=== PATIENT | female | born 1965 | race African-American/Black ===

== ENCOUNTER 2016-11-09 11:24 | Inpatient (IN) ==
[2016-11-09 12:34] LABS: Apearance,Urine CLEAR (Clear); Bacteria,Urine Occasional /HPF (Few); Bilirubin,Urine Negative (Negative); Blood, Urine Small mg/dL (Negative); Glucose,Urine (UA) >=500 mg/dL (Negative); Ketones,Urine 5 mg/dL (Negative); Mucus,Urine Occasional /LPF (Occasional); Nitrite,Urine Negative (Negative); Protein,Urine 100 MG/DL; RBC,Urine <1 /HPF (0-4); Squamous Epithelial Cell,Urine Occasional /HPF (0-10); Urine Color Straw (Yellow); Urine Specific Gravity 1.013 (1.001-1.035); Urine Urobilinogen < 2.0 EU/DL (0.2-1.0); WBC,Urine 1 /HPF (0-6)
[2016-11-09] MEDS ORDERED: PANTOPRAZOLE 40 MG VIAL IV STA (13:06)
[2016-11-09] MEDS ORDERED: PANTOPRAZOLE 40 MG VIAL IV ONE (13:08)
[2016-11-09] MEDS ORDERED: MORPHINE 2 MG/1 ML SYRINGE IM STA (13:56)
[2016-11-09] MEDS ORDERED: ONDANSETRON 4 MG/2 ML VIAL IM STA (13:56)
[2016-11-09] MEDS ORDERED: MORPHINE 2 MG/1 ML SYRINGE ONE ×2 (13:58→16:13)
[2016-11-09] MEDS ORDERED: ONDANSETRON 4 MG/2 ML VIAL ONE (13:58)
--- NOTE | 2016-11-09 14:28 | Post Interventional Procedure ---
Pre-op diagnosis: Abd pain, no PIV access Post-op diagnosis: same Procedure: LUE PICC Flouroscopy: 0.1 min Radiologist: Scar Soni Anesthesia: local Specimens: none sent Estimated blood loss: none Complications: none Condition: stable Assessment and Plan - Time spent with patient Time spent with patient: Less than 30 minutes
[2016-11-09 14:51] LABS: Basophils % 0.3 % (0.0-0.8); Eosinophils # 0.1 10*3/uL (0.0-0.87); Eosinophils % 1.1 % (0.00-10.9); Hematocrit 39.5 VOL% (35.7-47.0); Hemoglobin 12.3 GM/DL (12.0-16.0); Immature Granulocytes % 0.3 %; Immature Granulocytes Absolute 0.02 #; Lymphocytes # 1.2 10*3/uL (1.4-4.0); Lymphocytes % 16.1 % (21.3-54.2); Mean Corpuscular HGB Conc 31.1 GM/DL (32-36); Mean Corpuscular Hemoglobin 24 PG (27-34); Mean Corpuscular Volume 76.3 FL (87-102); Mean Platelet Volume 10.6 FL (9.6-12.0); Monocytes # 0.5 10*3/uL (0.11-0.8); Monocytes % 6.4 % (1.7-12.7); Neutrophils # 5.5 10*3/uL (1.4-7.4); Neutrophils % 75.8 % (38.7-73.9); Platelet Count 257 T/CUMM (130-400); Red Blood Count 5.18 MC/CUMM (3.8-5.5); Red Cell Distribution Width 15.3 % (9.3-17.3); White Blood Count 7.2 T/CUMM (4-12)
--- NOTE | 2016-11-09 14:58 | Emergency Department Note ---
Arrival - Arrival Chief Complaint: Abdominal / Flank Pain Stated Complaint: abd pain ED Nursing Triage Note: upper abd pain for several days. was told that she had reflux and given pain meds but reports has not helped. Mode of Arrival: Ambulatory Source: Patient Time Seen by Provider: 11/09/16 12:13 - History of Present Illness HPI Narrative: 51 y/o black female presents to the ER complaining of upper abdominal pain, nausea, and vomiting. Describes pain as a burning pain. Pain is worse after eating. Symptoms started 3-4 days ago but continues to worsen. Patient was seen in the ER on 11/07/16 for the same complaint and discharged home with the diagnosis of GERD. On 11/07/16 CT Abd/Pelvis and lab work were all normal. Past medical history significant for GERD, IDDM, sarcoidosis, hyst, and Cholecystectomy. Severity: mild Quality: burning Date of Last Menstrual Period: hyst Allergies/Adverse Reactions: Allergies Allergy/AdvReac Type Severity Reaction Status Date / Time Penicillins AdvReac Nausea Verified 11/07/16 08:54 Home Medications: Home Medications Medication Instructions Recorded Confirmed Type Acetaminophen Tab [Tylenol Tab] 500 mg PO QOTHER DAY PRN 11/07/16 11/09/16 History Albuterol Sulfate [Ventolin HFA] 2 puff INH Q4H PRN 11/07/16 11/09/16 History Insulin NPH Human Isophane 25 unit SUBCUT QAM 11/07/16 11/09/16 History [NovoLIN N] Insulin NPH Human Isophane 35 unit SUBCUT BEDTIME 11/07/16 11/09/16 History [NovoLIN N] Insulin Regular, Human [NovoLIN R] 10 unit SUBCUT BID 11/07/16 11/09/16 History Pantoprazole Tab [Protonix Tab] 40 mg PO BID #60 tablet 11/07/16 11/09/16 Rx Review of System - Review of System 12 point system: reviewed and no additional remarkable complaints except as stated - Review of System Gastrointestinal: Present: abdominal pain (epigastric ), nausea Medical,Surgical,& Family Hx - Medical History Endocrine: History of: Diabetes Mellitus (IDDM) Respiratory: History of: Respiratory Problems (Sarcodosis) Gastrointestinal: History of: GERD - Social History Smoking Status: Never smoker Exam Vital Signs: Vital Signs Temperature 97.9 F 11/09/16 11:39 Pulse Rate 82 11/09/16 15:20 Respiratory Rate 20 11/09/16 15:20 Blood Pressure 189/109 11/09/16 15:20 O2 Sat by Pulse Oximetry 100 11/09/16 15:20 - General General appearance: alert, in no apparent distress - ENT ENT exam: Present: normal exam, normal oropharynx, mucous membranes moist - Chest Chest inspection: Present: normal inspection - Respiratory Respiratory exam: Present: normal lung sounds bilaterally - Cardiovascular Cardiovascular exam: Present: regular rate, normal rhythm, normal heart sounds - Abdominal Exam Abdominal exam: Present: soft, tenderness (epigastric ), normal bowel sounds - Extremities Exam Extremities exam: Present: normal inspection, full ROM - Back Exam Back exam: Absent: CVA tenderness (R), CVA tenderness (L) - Neurological Exam Neurological exam: Present: alert, oriented X3 - Psychiatric Psychiatric exam: Present: normal affect, normal mood - Skin Skin exam: Present: warm, dry Course - Consultations Consultation #1: Hospitalist Time: 15:00 (Will admit patient to Hospitalist ) Results - Labs CBC & BMP: 11/09/16 12:14 11/09/16 12:14 Lab Results: I have reviewed the patients labs Disposition Clinical Impression: Epigastric pain, Nausea & vomiting Case discussed with: patient Disposition: Still a Patient Condition: Stable
[2016-11-09 15:08] LABS: Alanine Aminotransferase 22 U/L (13-56); Albumin 3.5 G/DL (3.4-5.0); Alkaline Phosphatase 138 U/L (45-117); Aspartate Amino Transferase 14 U/L (0-37); Bilirubin,Total < 0.39 MG/DL (0.2-1.0); Blood Urea Nitrogen 9 MG/DL (7-18); Calcium 9.2 MG/DL (8.5-10.1); Glucose 277 MG/DL (74-106); Osmolality,Calculated 283.7 MOS/KG (273-304); Potassium 3.4 MMOL/L (3.5-5.1); Sodium 138 MMOL/L (136-145); Total Protein 7.7 G/DL (6.4-8.3)
--- NOTE | 2016-11-09 15:09 | Interventional Radiology Rpt ---
IR PICC line insertion, US guide vascular access Indication: Severe abdominal pain. No peripheral IV access. PICC LINE Description: A formal timeout was performed. Maximum sterile barrier technique was used. Sonographic evaluation of the left upper extremity demonstrates patent and compressible basilic vein. The upper arm was prepped and draped in sterile fashion. 3 cc 1% lidocaine was administered subcutaneously. Under sonographic guidance, a micropuncture needle was advanced into the vein. A captured sonographic image documents the position of the needle. Needle was exchanged over a wire for a peel-away sheath. A dual lumen power PICC, cut to 40 cm, was advanced over the wire until the tip was at the RA-SVC junction. The position of the catheter was confirmed with fluoroscopic guidance and an image stored in PACS. The wire and sheath were removed. Both ports of the PICC were aspirated and flushed with heparinized saline. The device was secured with a StatLock. Fluoroscopy: 0.1 minute. Impression: PICC line ready for immediate use. Routine catheter care. PROCEDURE INTERPRETED AT [facility] DEPARTMENT OF RADIOLOGY Final Report Signed by: Scar Soni M.D.
--- NOTE | 2016-11-09 15:20 | Hospitalist History & Physical ---
<Aretha Altamiranoda - Last Filed: 11/09/16 15:23> Assessment and Plan (1) Epigastric pain Status: Acute Assessment and plan: Will keep NPO; manage pain, consult GI to evalaute. Current Visit: Yes (2) Nausea & vomiting Status: Acute Current Visit: Yes Qualifiers: Vomiting Intractability: unspecified (3) Diabetes mellitus Status: Acute Assessment and plan: Glucose -277 at time of admission. Will obtain HGA1C, start accuchecks with sliding scale, and consult unit educator. Current Visit: No History of Present Illness Chief complaint: epigastric pain History of present illness: This is a very pleasant 51 year old female that presented to the Non Urgent Care /Fast Track at [facility] today for evaluation for epigastric pain, nausea and vomiting. The patient has a rather impressive medical history significant for insulin dependent diabetes mellitus, sarcoidosis , and gastroesophageal reflux disease. She has a surgical history of hysterectomy and cholecystectomy. The reported the onset of pain a couple of days prior to presentation. She presented to the ED for the above complaints on 11/07; she was evaluated and discharged home with Hao. 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 She reports that the pain has never really subsided since her ED visit. She was at work today when the pain became very intense. She presented to the Non-Urgent/Fast Track for further evaluation. She was evaluated. Staff attempted to obtain labs; however her veins were very poor. She was consented; then taken to IR for PICC line placement. Labs were obtained. She was noted to be hypoakemic with a potassium of 3.4 and hypomagnesia with a magnesium level of 1.7. A CT abdomen and pelvis was performed on 11/07; which was essentially unremarkable.After discussion with KELLY Taylor and Dr. Orellana, the patient will be admitted to the hospitalist service for continuation of care. We will consult GI to evaluate. Home Medications Medication Instructions Recorded Confirmed Type Acetaminophen Tab [Tylenol Tab] 500 mg PO QOTHER DAY PRN 11/07/16 11/09/16 History Albuterol Sulfate [Ventolin HFA] 2 puff INH Q4H PRN 11/07/16 11/09/16 History Insulin NPH Human Isophane 25 unit SUBCUT QAM 11/07/16 11/09/16 History [NovoLIN N] Insulin NPH Human Isophane 35 unit SUBCUT BEDTIME 11/07/16 11/09/16 History [NovoLIN N] Insulin Regular, Human [NovoLIN R] 10 unit SUBCUT BID 11/07/16 11/09/16 History Pantoprazole Tab [Protonix Tab] 40 mg PO BID #60 tablet 11/07/16 11/09/16 Rx Allergies Allergy/AdvReac Type Severity Reaction Status Date / Time Penicillins AdvReac Nausea Verified 11/07/16 08:54 Medical,Surgical,& Family Hx - Medical History Endocrine: History of: Diabetes Mellitus (IDDM) Respiratory: History of: Respiratory Problems (Sarcodosis) Gastrointestinal: History of: GERD - Social History Smoking Status: Never smoker 12 point system: reviewed and no additional remarkable complaints except as stated Exam - Constitutional Vitals: Period Temp Pulse Resp BP Sys/Mcwilliams Pulse Ox Last 24 Hr 97.9 F 88 18 162/102 98 General appearance: normal weight, mild distress - Head Head exam: Present: normal inspection, normocephalic, atraumatic - Eye Eye exam: Present: EOMI. Absent: conjunctival injection Pupils: Present: VIDHI, normal accommodation - ENT ENT exam: Present: normal exam, normal external ear exam, normal oropharynx - Neck Neck exam: Present: normal inspection, lymphadenopathy, meningismus, tenderness , thyromegaly - Respiratory Respiratory exam: Present: clear to auscultation bilaterally. Absent: rales, rhonchi, stridor, wheezes - Cardiovascular Cardiovascular exam: Present: regular rate and rhythm. Absent: carotid bruit, diastolic murmur, gallop, rubs, systolic murmur, tachycardia - GI/Abdominal GI/Abdominal exam: Present: hypoactive bowel sounds, tenderness, other ( epigastric pain). Absent: firm - Extremities Exam Extremities exam: Present: normal inspection, normal capillary refill, full ROM. Absent: edema - Back Exam Back exam: Present: normal inspection - Neurological Exam Neurological exam: Present: alert, oriented X3, CN II-XII intact - Psychiatric Psychiatric exam: Present: normal affect, normal mood - Skin Skin exam: Present: normal color, warm, dry Results - Labs CBC & BMP: 11/09/16 12:14 11/09/16 12:14 Lab Results: I have reviewed the past 24 hour labs <Joe Bonilla - Last Filed: 11/09/16 16:18> Assessment and Plan (1) Epigastric pain Status: Acute Assessment and plan: Impression: 1. Abdominal pain, likely diabetic gastroparesis 2. Type II DM 3. History of sarcoidosis, apparently in remission Plan: IV fluids and GI rest. Analgesics as needed. Anti-emetics as needed. Current Visit: No History of Present Illness History of present illness: Ms. Perez is a 51 year old female The patient reports a 20 year history of type II DM, and reports that she has been on insulin for the entire duration of her disease. She describes some problems "with the lining of her stomach" as a result of the diabetes, and says that she was hospitalized for this several years ago. However, she has not really had much in the way of any other GI complaints except for some reflux symptoms that have been controlled with Protonix. She also has a history of pulmonary sarcoidosis. She says that it is in remission, and she is not on any medicine for the sarcoidosis. She came to the emergency room for evaluation of some GI symptoms a couple of days ago. She was treated and released. She came in from work today with essentially the same symptoms. She describes midepigastric pain. She says that she had a cholecystectomy years ago, and also had some sort of surgery on her colon because she was chronically constipated. Exam - Constitutional Vitals: Examination is as described above. She has some midepigastric tenderness with good bowel sounds. Results - Labs CBC & BMP: 11/09/16 12:14 11/09/16 12:14
[2016-11-09] MEDS ORDERED: MAGNESIUM SULF RIDER 2 GM in PREMIX 1 EACH IV PRN (15:40)
[2016-11-09] MEDS ORDERED: MAGNESIUM SULF RIDER 4 GM in PREMIX 1 EACH IV PRN (15:40)
[2016-11-09] MEDS ORDERED: ALUM/MAG/SIMETH/LIDO VISC 1:1 30 ML BOTTLE PO STA (15:46)
[2016-11-09] MEDS ORDERED: ALUM/MAG/SIMETH/LIDO VISC 1:1 30 ML BOTTLE PO ONE (15:56)
[2016-11-09 16:02] LABS: Risk Ratio 2.42; VLDL CHOLESTEROL 10.8 MG/DL
[2016-11-09] MEDS ORDERED: MORPHINE 2 MG/1 ML SYRINGE IV ONE (16:11)
[2016-11-09] MEDS ORDERED: PROMETHAZINE INJ 12.5 MG in SODIUM CHLORIDE 0.9% 50 ML IV PRN ×2 (16:48→17:35)
[2016-11-09] MEDS ORDERED: MORPHINE 2 MG/1 ML SYRINGE IV PRN (16:48)
[2016-11-09] MEDS ORDERED: ONDANSETRON 4 MG/2 ML VIAL IV PRN (17:36)
[2016-11-09] MEDS ORDERED: DEXTROSE 50% 25 GM/50 ML VIAL IV PRN (17:38)
[2016-11-09] MEDS ORDERED: GLUCAGON 1 MG VIAL IM PRN (17:38)
[2016-11-09] MEDS: POTASSIUM CHLORIDE RIDER 10 MEQ in PREMIX 1 EACH IV PRN ×2 (18:41→20:51)
[2016-11-09] MEDS: INSULIN REGULAR 100 UNIT/ML SUBCUT SCH (20:52)
[2016-11-09] MEDS ORDERED: PROMETHAZINE INJ 25 MG in SODIUM CHLORIDE 0.9% 50 ML IV PRN (21:33)
--- NOTE | 2016-11-09 21:43 | Gastrointestinal Consult Note ---
Assessment and Plan (1) Epigastric pain Status: Acute Assessment and plan: As mentioned below the patient has recurrent nausea and vomiting over the last 2 weeks. The epigastric tenderness may be simply a response to the degree of vomiting this occurring with the underlying gastroenteritis, or may be reflective of a primary process such as gastritis. I do not think the patient' s sarcoid is playing into this issue, but the vomiting certainly has been enough to produce secondary hypokalemia. Agree with IV Protonix twice daily and replacement of potassium in anticipation of potential upper endoscopy tomorrow. Further recommendations post upper endoscopy. Current Visit: Yes (2) Nausea & vomiting Status: Acute Assessment and plan: The patient is having nausea and vomiting which she states is been going on for the last 2 weeks. Is unclear whether this is due to gastritis or some underlying prolonged gastroenteritis or perhaps peptic ulcer disease. Patient' s white blood cell count is actually normal at 7.2 as is her hematocrit of 39.5% . She has in her outpatient records listed to be on Protonix twice daily. We will try switching this over to oral as well as giving her IV [id number] Phenergan which she should be able tolerate better. I think it is reasonable to replace her with some normal saline given her low potassium. We will proceed with upper endoscopy to check her for gastritis and peptic ulcer disease tomorrow. Risks of the procedure were reviewed with the patient and include but are not limited to: Bleeding, infection, perforation, cardiac and pulmonary compromise. Current Visit: Yes Qualifiers: Vomiting Intractability: unspecified (3) Hypokalemia Status: Acute Assessment and plan: This is reflective of the loss of hydrogen protons with corresponding decrease in potassium as the ions shift to compensate. Simple hydration replacement of potassium is called for. Current Visit: Yes History of Present Illness History of present illness: Ms. Perez is a 51 year old female who has a history of presenting with 2 weeks worth of nausea vomiting and epigastric pain which is now climbed up to 10 out of 10 in intensity. She previously been scoped by Dr. Claros in the past but thinks this is over 5-7 years ago and cannot recall exactly what he found. He also perform colonoscopy which were apparently was unremarkable. She states that she does not use any anti-inflammatory agents aside from acetaminophen. She does have a history of taking pantoprazole twice daily although it is not clear whether she is able to keep down her dosing lately. She does have a low magnesium at 1.7 and her potassium is on the low side as well as 3.4. The patient has not had any coffee ground emesis, blood in the vomitus or black tarry bowel movements. She is really not been able to tolerate any sort of food today at all. She typically works here at the [employer] at [employer]. She does not have a family history of colon cancer or polyps. We will need to research the exact date at the patient's last upper and lower endoscopies. She denies diarrhea and constipation she has not had any fevers or chills. She has not had any sick contacts or travel history. She does not own any reptiles or amphibians or other potential factors. Home Medications Medication Instructions Recorded Confirmed Type Acetaminophen Tab [Tylenol Tab] 500 mg PO QOTHER DAY PRN 11/07/16 11/09/16 History Albuterol Sulfate [Ventolin HFA] 2 puff INH Q4H PRN 11/07/16 11/09/16 History Insulin NPH Human Isophane 25 unit SUBCUT QAM 11/07/16 11/09/16 History [NovoLIN N] Insulin NPH Human Isophane 35 unit SUBCUT BEDTIME 11/07/16 11/09/16 History [NovoLIN N] Insulin Regular, Human [NovoLIN R] 10 unit SUBCUT BID 11/07/16 11/09/16 History Pantoprazole Tab [Protonix Tab] 40 mg PO BID #60 tablet 11/07/16 11/09/16 Rx Allergies Allergy/AdvReac Type Severity Reaction Status Date / Time Penicillins AdvReac Nausea Verified 11/07/16 08:54 Medical,Surgical,& Family Hx - Medical History Endocrine: History of: Diabetes Mellitus (IDDM) Respiratory: History of: Asthma, Respiratory Problems (Sarcodosis) Gastrointestinal: History of: GERD - Surgical History Abdominal Surgeries: Surgical HX of: Abdominal Surgery, Cholecystectomy Reproductive Surgeries: Surgical HX of;: Hysterectomy - Family History Family History: Reports;: Family Diabetes (BROTHER AND SISTER), Family Hypertension (SISTER AND BROTHER), Family Stroke (MOTHER) - Social History Smoking Status: Never smoker Frequency of Alcohol Use: None Type of Drug Use: None Review of systems: Constitutional: Denies fever, chills, but positive for extreme nausea, and vomiting Eyes: Denies dry eyes, and scleral icterus HENT: Patient does have some headaches Cardiovascular: Denies acute chest pain and claudication Respiratory: Denies shortness of breath, wheezing, and difficulty breathing, denies cough Gastrointestinal: As noted in the HPI Genitourinary: Denies dysuria and hematuria Neurologic: Denies vision loss, and loss of sensation Musculoskeletal: She does have some joint stiffness, and muscular weakness but no joint swelling Psychiatric: Denies depression and allie symptoms Heme-Lymph: Denies easy bruising, lymph node enlargement or tenderness, night sweats, excessive bleeding Allergies-immunologic: Denies pruritus and rhinorrhea Exam - Constitutional Vitals: Period Temp Pulse Resp BP Sys/Mcwilliams Pulse Ox Last 24 Hr 97.6 F-98.5 F 82-92 20-20 175-189/82-109 96-100 General appearance: over weight Exam: Constitutional: Well-developed, well-nourished, alert, who appears mildly lethargic and fatigued. Head and face: Head: Normocephalic atraumatic Eyes: Conjunctiva without injection, no gross scleral icterus, pupils equal and round bilaterally Ears: Intact to conversation in both ears Nose: External appearance is normal, nares patent Mouth: Oral mucous membranes moist without erythema dentition noted to be without erosion Neck: Normal appearance, no masses or tenderness, trachea midline Thyroid: Gland midline and appropriate size for age Respiratory: Normal respiratory effort, clear to auscultation without wheezes, rhonchi or rales Cardiovascular: Regular rate and rhythm, normal S1, S2, the exam is without rubs, murmurs or gallops. Gastrointestinal: Moderate tenderness to epigastric palpation, normal active bowel sounds, tone normal without rigidity or guarding, no masses present , no hepatomegaly, no spleen tip felt. No rectal exam obtained. Lymphatic: Neck without adenopathy, axilla without lymphadenopathy present Musculoskeletal: Right and left lower extremities without evidence of edema Skin and subcutaneous tissue: No rashes or ulcerations noted, normal skin turgor, digits and nails without clubbing/cyanosis/deformities. Neurologic: The patient is grossly oriented to person place and time, cranial nerves show tongue movements are normal with normal tongue extrusion midline, light touch sensation is intact. Psychiatric: No hallucinations or delusions are present, does not appear depressed Results - Labs CBC & BMP: 11/09/16 12:14 11/09/16 12:14
[2016-11-09] MEDS: POTASSIUM CHLORIDE RIDER 10 MEQ in PREMIX 1 EACH IV SCH (22:30)
[2016-11-09] MEDS: MORPHINE 2 MG/1 ML SYRINGE IV PRN (22:31)
[2016-11-10] MEDS: POTASSIUM CHLORIDE RIDER 10 MEQ in PREMIX 1 EACH IV SCH ×3 (00:05→01:14)
[2016-11-10] MEDS: POTASSIUM CHLORIDE INJ 10 MEQ in SODIUM CHLORIDE 0.9% 1,000 ML IV SCH ×4 (00:06→21:09)
[2016-11-10 06:39] LABS: Basophils % 0.3 % (0.0-0.8); Eosinophils % 0.4 % (0.00-10.9); Hematocrit 38.2 VOL% (35.7-47.0); Hemoglobin 11.9 GM/DL (12.0-16.0); Immature Granulocytes % 0.4 %; Immature Granulocytes Absolute 0.03 #; Lymphocytes # 1.9 10*3/uL (1.4-4.0); Lymphocytes % 23.3 % (21.3-54.2); Mean Corpuscular HGB Conc 31.2 GM/DL (32-36); Mean Corpuscular Hemoglobin 24 PG (27-34); Mean Corpuscular Volume 77.3 FL (87-102); Monocytes # 0.8 10*3/uL (0.11-0.8); Monocytes % 9.9 % (1.7-12.7); Neutrophils # 5.2 10*3/uL (1.4-7.4); Neutrophils % 65.7 % (38.7-73.9); Platelet Count 250 T/CUMM (130-400); Red Blood Count 4.94 MC/CUMM (3.8-5.5); Red Cell Distribution Width 15.5 % (9.3-17.3)
[2016-11-10] MEDS: MORPHINE 2 MG/1 ML SYRINGE IV PRN ×3 (06:39→21:10)
[2016-11-10 07:04] LABS: Albumin 3.1 G/DL (3.4-5.0); Bilirubin,Total 0.4 MG/DL (0.2-1.0); Calcium 8.7 MG/DL (8.5-10.1); Magnesium 2.2 MG/DL (1.8-2.4); Osmolality,Calculated 283.4 MOS/KG (273-304); Potassium 4.2 MMOL/L (3.5-5.1); Total Protein 6.7 G/DL (6.4-8.3)
[2016-11-10] MEDS ORDERED: PROPOFOL 200 MG/20 ML VIAL IV ONE (08:25)
[2016-11-10] MEDS ORDERED: LIDOCAINE 2% 5 ML VIAL ONE (08:25)
--- NOTE | 2016-11-10 08:45 | Operative Note ---
Date of procedure: 11/10/16 Pre-op diagnosis: Nausea, vomiting/epigastric pain/hypokalemia Post-op diagnosis: other (I strongly suspect this patient has an element of gastroparesis. I would like to check her for this prior to putting her on Reglan, due to the side effects associated with that medication. She does have some mild gastritis in addition. Will arrange for gastric emptying study to be done tomorrow (the narcotics and medication use for the upper endoscopy may affect this adversely). In the meantime, we will leave her on IV Protonix twice daily and see how she tolerates a clear liquid diet.) Procedure: PROCEDURE: Esophagogastroduodenoscopy (EGD) with cold biopsy for pathology REFERRING PHYSICIAN: Joe Bonilla MD INDICATIONS: Nausea/vomiting/epigastric pain and hypokalemia. The prior H&P was reviewed and interrim changes are as noted: No change from GI consultation yesterday ENDOSCOPIST: Lan Matthews MD ENDOSCOPE: Olympus Video 100 System upper endoscope ASA CLASS: 2 EXAM: CV: regular rate and rhythm respiratory: Clear without wheezes abdominal: active bowel sounds MEDICATION: Per nursing anesthesia protocol, see their notes PROCEDURE: After discussion of the potential risks and benefits of upper endoscopy, the informed consent was obtained. The patient was then placed in the left lateral decubitus position where sedation was achieved as noted above. Esophageal intubation was performed without difficulty, and the endoscope was advanced through the esophagus, stomach and duodenum. A slow withdrawal was then performed with retroflexion in the stomach for careful inspection of the incisura angularis, fundus and cardia. The scope was then returned to a neutral position and withdrawn through the esophagus. The patient tolerated the procedure well and without complication. BIOPSIES: Esophageal polyp at 25 cm, gastric antrum/body PHOTOGRAPHS: Obtained FINDINGS: Hypopharynx and Larynx: Normal Esohagoscopy Upper and middle thirds: Normal Lower third 8 mm polyp noted in the midesophagus at 25 cm, removed by cold biopsy Esophogastric junctions: No gross evidence of esophagitis or Ramey's or stricturing. Gastroscopy: Cardia/Fundus: There was a large amount of bilious fluid noted here with some turbidity indicative of an underlying gastroparesis. Body: Mild diffuse gastritis, biopsied Antrum and pylorus mild diffuse gastritis, biopsied Duodenoscopy: Bulb normal Second and third portions: Normal IMPRESSION: I strongly suspect this patient has an element of gastroparesis. I would like to check her for this prior to putting her on Reglan, due to the side effects associated with that medication. She does have some mild gastritis in addition. Will arrange for gastric emptying study to be done tomorrow (the narcotics and medication use for the upper endoscopy may affect this adversely). In the meantime, we will leave her on IV Protonix twice daily and see how she tolerates a clear liquid diet. RECOMMENDATIONS: Follow up for biopsy results in 1-2 weeks by phone [phone] Continue anti-gastroesophageal reflux measures (avoid carbonated and acidic beverages, avoid eating within 2 hours of bedtime, avoid tight fitting clothing , and elevate the front bed posts 6 inches prior to sleeping. Protonix 40 mg IV twice daily Clear liquid diet Gastric emptying study to be done tomorrow. Lan Matthews MD COPY TO: Joe Bonilla MD Anesthesia: MAC Surgeon / Physician: Lan Matthews Estimated blood loss: none Specimens: other (Esophageal polyp at 25 cm, gastric antrum/body) Condition: stable Disposition: post procedure unit ([facility] Suite) Results - Labs CBC & BMP: 11/10/16 05:55 11/10/16 05:55 Discharge Plan - Discharge Medications No Action Albuterol Sulfate [Ventolin HFA] 2 puff INH Q4H PRN PRN Reason: Shortness Of Breath/Wheezing Insulin NPH Human Isophane [NovoLIN N] 35 unit SUBCUT BEDTIME Insulin Regular, Human [NovoLIN R] 10 unit SUBCUT BID Acetaminophen Tab [Tylenol Tab] 500 mg PO QOTHER DAY PRN PRN Reason: Pain Pantoprazole Tab [Protonix Tab] 40 mg PO BID #60 tablet Insulin NPH Human Isophane [NovoLIN N] 25 unit SUBCUT QAM - Follow Up or Referral - Forms/Instructions
--- NOTE | 2016-11-10 08:49 | Gastrointestinal Progress Note ---
Assessment and Plan (1) Epigastric pain Status: Acute Assessment and plan: As mentioned below the patient has recurrent nausea and vomiting over the last 2 weeks. The epigastric tenderness may be simply a response to the degree of vomiting this occurring with the underlying gastroenteritis, or may be reflective of a primary process such as gastritis. I do not think the patient' s sarcoid is playing into this issue, but the vomiting certainly has been enough to produce secondary hypokalemia. Agree with IV Protonix twice daily and replacement of potassium in anticipation of potential upper endoscopy tomorrow. Further recommendations post upper endoscopy. 11/10/16--the findings of upper endoscopy were as follows: There were a lot of retained green secretions in the stomach. I strongly suspect this patient has an element of gastroparesis. I would like to check her gastric emptying for this prior to putting her on Reglan, due to the side effects associated with that medication. She does have some mild gastritis in addition. Will arrange for gastric emptying study to be done tomorrow (the narcotics and medication use for the upper endoscopy may affect this adversely). In the meantime, we will leave her on IV Protonix twice daily and see how she tolerates a clear liquid diet. Current Visit: Yes (2) Nausea & vomiting Status: Acute Assessment and plan: The patient is having nausea and vomiting which she states is been going on for the last 2 weeks. Is unclear whether this is due to gastritis or some underlying prolonged gastroenteritis or perhaps peptic ulcer disease. Patient' s white blood cell count is actually normal at 7.2 as is her hematocrit of 39.5% . She has in her outpatient records listed to be on Protonix twice daily. We will try switching this over to oral as well as giving her IV [id number] Phenergan which she should be able tolerate better. I think it is reasonable to replace her with some normal saline given her low potassium. We will proceed with upper endoscopy to check her for gastritis and peptic ulcer disease tomorrow. Risks of the procedure were reviewed with the patient and include but are not limited to: Bleeding, infection, perforation, cardiac and pulmonary compromise. 11/10/16--Continue on Protonix 40 mg IV twice daily Current Visit: Yes Qualifiers: Vomiting Intractability: unspecified (3) Hypokalemia Status: Acute Assessment and plan: This is reflective of the loss of hydrogen protons with corresponding decrease in potassium as the ions shift to compensate. Simple hydration replacement of potassium is called for. 11/10/16--This is been corrected with runs of potassium last night. Currently above 4. Current Visit: Yes Gastroenterology - PN: Subj Interval history: Patient is feeling slightly better but not completely back to normal. Exam (Progress Note) - Constitutional Vitals: Period Temp Pulse Resp BP Sys/Mcwilliams Pulse Ox Last 24 Hr 97.1 F-99.8 F 82-103 20-26 92-189/52-109 95-100 General appearance: mild distress - Head Head exam: Present: normocephalic - Eye Eye exam: Present: EOMI - Respiratory Respiratory exam: Present: clear to auscultation bilaterally - Cardiovascular Cardiovascular exam: Present: regular rate and rhythm - GI/Abdominal GI/Abdominal exam: Present: normal bowel sounds, tenderness (Epigastric pain), soft. Absent: distended, guarding, rebound - Extremities Exam Extremities exam: Absent: edema - Neurological Exam Neurological exam: Present: alert, oriented X3, CN II-XII intact - Psychiatric Psychiatric exam: Present: normal affect, normal mood Results - Labs CBC & BMP: 11/10/16 05:55 11/10/16 05:55
--- NOTE | 2016-11-10 08:59 | Anesthesia Post-Op ---
Anesthesia Post OP - Post Ansesthetic Evaluation Patient seen in post op: Yes Resp: within normal limits CV: within normal limits Mental: within normal limits Temp: within normal limits Azkm-Xv-Zrgxowysq: within normal limits Nausea and Vomiting: within normal limits Pain: within normal limits
[2016-11-10] MEDS: PANTOPRAZOLE 40 MG VIAL IV SCH ×2 (09:40→21:09)
[2016-11-10] MEDS: INSULIN REGULAR 100 UNIT/ML SUBCUT SCH ×5 (09:41→21:39)
[2016-11-10] MEDS ORDERED: ALBUTEROL 2.5 MG/3 ML NEB RESP TX PRN (10:42)
--- NOTE | 2016-11-10 10:45 | Hospitalist Progress Note ---
Assessment and Plan (1) Epigastric pain Status: Acute Assessment and plan: The patient is admitted to the hospital with epigastric pain and will have gastric emptying study tomorrow. Current Visit: No (2) Diabetes mellitus Status: Acute Current Visit: No (3) Nausea & vomiting Status: Acute Current Visit: Yes Qualifiers: Vomiting Intractability: unspecified (4) Hypokalemia Status: Acute Current Visit: Yes Hospitalist: Subjective Interval history: The patient is admitted to the hospital with epigastric pain. Dr. Matthews's endoscopy did not reveal lesion consistent with the pain. Dr. Matthews plans to do gastric emptying study tomorrow. The patient will stay on clear liquid diet and minimum of medication until then. Exam - Constitutional Vitals: Period Temp Pulse Resp BP Sys/Mcwilliams Pulse Ox Last 24 Hr 97.1 F-99.8 F 82-103 16-26 92-189/52-109 94-100 Exam: Constitutional System: Mild distress. No tremulousness. Head: Normocephalic, atraumatic. Ears, Nose and Throat System: No evidence of Otitis or Mastoiditis. No epistaxis or discharge Eyes System: Pupils equal, round, and reactive. Extraocular muscles intact. Neck: Supple, without adenopathy, No jugular venous distention. No thyromegaly , neck mass, or prior surgery apparent. Respiratory System: Chest clear to auscultation. Cardiovascular System: Heart with regular rate and rhythm. No murmur. GI System: Abdomen soft, nontender. Normo active bowel sounds present. Musculoskeletal System: limbs with no pedal edema. Full distal pulses. Neurological System: No discernable sensory deficit. No aphasia Psychiatric System: Conversation is rational Results - Labs CBC & BMP: 11/10/16 05:55 11/10/16 05:55 Lab Results: I have reviewed the past 24 hour labs
[2016-11-11] MEDS: POTASSIUM CHLORIDE INJ 10 MEQ in SODIUM CHLORIDE 0.9% 1,000 ML IV SCH (05:10)
[2016-11-11 06:15] LABS: Basophils % 0.1 % (0.0-0.8); Eosinophils # 0.2 10*3/uL (0.0-0.87); Eosinophils % 2.2 % (0.00-10.9); Hematocrit 34.7 VOL% (35.7-47.0); Immature Granulocytes % 0.4 %; Immature Granulocytes Absolute 0.03 #; Lymphocytes # 1.7 10*3/uL (1.4-4.0); Lymphocytes % 24.1 % (21.3-54.2); Mean Corpuscular HGB Conc 31.7 GM/DL (32-36); Mean Corpuscular Hemoglobin 24 PG (27-34); Mean Corpuscular Volume 75.9 FL (87-102); Mean Platelet Volume 11.3 FL (9.6-12.0); Monocytes # 0.5 10*3/uL (0.11-0.8); Monocytes % 7.7 % (1.7-12.7); Neutrophils # 4.6 10*3/uL (1.4-7.4); Neutrophils % 65.5 % (38.7-73.9); Platelet Count 237 T/CUMM (130-400); Red Blood Count 4.57 MC/CUMM (3.8-5.5); Red Cell Distribution Width 15.7 % (9.3-17.3)
[2016-11-11 06:50] LABS: Calcium 7.6 MG/DL (8.5-10.1); Magnesium 1.9 MG/DL (1.8-2.4); Osmolality,Calculated 288.7 MOS/KG (273-304); Potassium 4.6 MMOL/L (3.5-5.1)
--- NOTE | 2016-11-11 08:14 | Hospitalist Progress Note ---
Assessment and Plan (1) Epigastric pain Status: Acute Assessment and plan: Impression: 1. Abdominal pain, likely diabetic gastroparesis 2. Type II DM 3. History of sarcoidosis, apparently in remission Plan: Await gastric emptying test. Will consider instituting a promotility agent. Current Visit: No Hospitalist: Subjective Interval history: Follow-up type II DM and gastroparesis. The patient continues with some abdominal pain. She had upper endoscopy yesterday that showed some indirect evidence of gastroparesis. She is scheduled for a gastric emptying test today. She has already received the radioactive meal, and will go back downstairs later this morning for the scan. She continues with some intermittent nausea. Abdominal pain comes and goes. She reports that she has had a gastric emptying test in the past, and it was abnormal. Exam - Constitutional Vitals: Period Temp Pulse Resp BP Sys/Mcwilliams Pulse Ox Last 24 Hr 97.7 F-98.8 F 91-101 16-20 90-123/52-76 93-98 Vital signs are noted above. Heart is regular with no murmur or gallop. Lungs are clear with no rales or wheezes. Abdomen is soft with occasional bowel sounds. She is awake and alert. Results - Labs CBC & BMP: 11/11/16 05:09 11/11/16 05:09 Lab Results: I have reviewed the past 24 hour labs
[2016-11-11] MEDS: INSULIN REGULAR 100 UNIT/ML SUBCUT SCH ×6 (09:46→22:59)
[2016-11-11] MEDS: PANTOPRAZOLE 40 MG VIAL IV SCH ×2 (09:47→21:35)
--- NOTE | 2016-11-11 10:45 | Gastrointestinal Progress Note ---
Assessment and Plan (1) Epigastric pain Status: Acute Assessment and plan: As mentioned below the patient has recurrent nausea and vomiting over the last 2 weeks. The epigastric tenderness may be simply a response to the degree of vomiting this occurring with the underlying gastroenteritis, or may be reflective of a primary process such as gastritis. I do not think the patient' s sarcoid is playing into this issue, but the vomiting certainly has been enough to produce secondary hypokalemia. Agree with IV Protonix twice daily and replacement of potassium in anticipation of potential upper endoscopy tomorrow. Further recommendations post upper endoscopy. 11/10/16--the findings of upper endoscopy were as follows: There were a lot of retained green secretions in the stomach. I strongly suspect this patient has an element of gastroparesis. I would like to check her gastric emptying for this prior to putting her on Reglan, due to the side effects associated with that medication. She does have some mild gastritis in addition. Will arrange for gastric emptying study to be done tomorrow (the narcotics and medication use for the upper endoscopy may affect this adversely). In the meantime, we will leave her on IV Protonix twice daily and see how she tolerates a clear liquid diet. 11/11/16--The patient is getting the last of her gastric emptying study at this point. I am going to put her on some IV Reglan afterwards and observe her for side effects. We will also see how she does with a more solid diet. If she is tolerating a solid diet and IV Reglan will likely switch her over to Reglan elixir tomorrow along with oral Protonix. She can likely be discharged after that. There was some mild gastritis noted in her stomach as well possibly secondary to stasis with a gastroparesis. Current Visit: Yes (2) Nausea & vomiting Status: Acute Assessment and plan: The patient is having nausea and vomiting which she states is been going on for the last 2 weeks. Is unclear whether this is due to gastritis or some underlying prolonged gastroenteritis or perhaps peptic ulcer disease. Patient' s white blood cell count is actually normal at 7.2 as is her hematocrit of 39.5% . She has in her outpatient records listed to be on Protonix twice daily. We will try switching this over to oral as well as giving her IV [id number] Phenergan which she should be able tolerate better. I think it is reasonable to replace her with some normal saline given her low potassium. We will proceed with upper endoscopy to check her for gastritis and peptic ulcer disease tomorrow. Risks of the procedure were reviewed with the patient and include but are not limited to: Bleeding, infection, perforation, cardiac and pulmonary compromise. 11/10/16--Continue on Protonix 40 mg IV twice daily 11/11/16--We will consider switching her over to p.o. tomorrow once we are sure that she is no longer vomiting. Current Visit: Yes Qualifiers: Vomiting Intractability: unspecified (3) Hypokalemia Status: Acute Assessment and plan: This is reflective of the loss of hydrogen protons with corresponding decrease in potassium as the ions shift to compensate. Simple hydration replacement of potassium is called for. 11/10/16--This is been corrected with runs of potassium last night. Currently above 4. 11/11/16--the patient's potassium levels up to 4.6. Will discontinue IV potassium and fluids. She appears to be adequately repleted. Current Visit: Yes Gastroenterology - PN: Subj Interval history: The patient is getting the last of her gastric emptying study done now. I would like to see how she does on Reglan afterwards, she would like to advance to a more solid diet as well. Exam (Progress Note) - Constitutional Vitals: Period Temp Pulse Resp BP Sys/Mcwilliams Pulse Ox Last 24 Hr 97.7 F-98.8 F 91-101 18-20 90-134/53-76 93-98 General appearance: no acute distress - Eye Eye exam: Present: EOMI - Respiratory Respiratory exam: Present: clear to auscultation bilaterally - Cardiovascular Cardiovascular exam: Present: regular rate and rhythm - GI/Abdominal GI/Abdominal exam: Present: normal bowel sounds, tenderness (Exclusively in the epigastric region.), soft. Absent: distended, guarding, rebound - Extremities Exam Extremities exam: Absent: edema - Neurological Exam Neurological exam: Present: alert, oriented X3, CN II-XII intact. Absent: motor sensory deficit - Psychiatric Psychiatric exam: Present: normal affect, normal mood - Skin Skin exam: Present: warm Results - Labs CBC & BMP: 11/11/16 05:09 11/11/16 05:09
--- NOTE | 2016-11-11 12:11 | Nuclear Medicine Report ---
Exam: Nuclear medicine gastric emptying study Date: November 11, 2016 Comparison: Gastric emptying study April 14, 2011 Reason: Retained secretions on endoscopy, nausea and vomiting Technique: The patient was orally administered 500 microcuries of technetium 99m sulfur colloid orally in a scrambled egg sandwich. Images of the stomach were then acquired over 252 minutes, and gastric emptying time was calculated. Findings: Linear fit T 1/2 is 134.06 minutes, and raw data T 1/2 is 113.69 minutes. Gastric emptying at 252 minutes is 82% (Normal greater than 90%). There is radiotracer activity within the esophagus on the 1 minute image. This could be secondary to esophageal dysmotility or gastroesophageal reflux. Impression: 1. Findings are consistent with mild delayed gastric emptying. 2. There is radiotracer activity within the esophagus on the 1 minute image. This could be secondary to esophageal dysmotility or gastroesophageal reflux. PROCEDURE INTERPRETED AT [facility] DEPARTMENT OF RADIOLOGY Final Report Signed by: Dr. Suki Sainz
[2016-11-11] MEDS: METOCLOPRAMIDE 10 MG/2 ML VIAL IV SCH ×2 (13:36→17:56)
[2016-11-11] MEDS: MORPHINE 2 MG/1 ML SYRINGE IV PRN (13:37)
[2016-11-12] MEDS: METOCLOPRAMIDE 10 MG/2 ML VIAL IV SCH ×2 (00:34→05:49)
--- NOTE | 2016-11-12 08:17 | Discharge Summary ---
Hospital Course - Hospital Course Hospital Course: Discharge diagnoses: 1. Abdominal pain, likely diabetic gastroparesis 2. Type II DM The patient presented to the emergency room for evaluation of some abdominal pain. Details are in the history and physical. She has a long history of type II DM. She also has pulmonary sarcoidosis, and this is apparently in remission. She was seen by GI. Upper endoscopy was suggestive of gastroparesis , with some retained food and gastric secretions at the time of endoscopy. Gastric emptying test was mildly abnormal. She was started on proton pump inhibitors and Reglan, and improved. She is now reached maximal hospital benefit, so we will let her go home. Medication reconciliation has been performed. I recommended 6 small meals per day. Activity as tolerated. She may return to work. This note was completed using [employer] voice recognition software. There may be coroner transport technician errors as a result. Diagnosis - Discharge Diagnosis (1) Epigastric pain Status: Acute Discharge Plan - Discharge Data Disposition: Disch To Home/Self Care Condition at Discharge: Stable Discharge Diet: advance to your usual diet Activity: resume usual activities as tolerated Hygiene: no restrictions Weight Bearing at Discharge: full weight bearing Driving: no restrictions - Discharge Medications New Metoclopramide Tab [Reglan Tab] 10 mg PO Q6HR #120 tablet Promethazine Tab [Phenergan Tab] 25 mg PO Q6H PRN #50 tablet PRN Reason: Nausea/Vomiting Continue Albuterol Sulfate [Ventolin HFA] 2 puff INH Q4H PRN PRN Reason: Shortness Of Breath/Wheezing Insulin NPH Human Isophane [NovoLIN N] 35 unit SUBCUT BEDTIME Insulin Regular, Human [NovoLIN R] 10 unit SUBCUT BID Acetaminophen Tab [Tylenol Tab] 500 mg PO QOTHER DAY PRN PRN Reason: Pain Pantoprazole Tab [Protonix Tab] 40 mg PO BID #60 tablet Insulin NPH Human Isophane [NovoLIN N] 25 unit SUBCUT QAM - Follow Up or Referral - Forms/Instructions Exam - Constitutional Vitals: Period Temp Pulse Resp BP Sys/Mcwilliams Pulse Ox Last 24 Hr 97 F-99.3 F 86-103 18-20 111-144/64-80 95-99 Vital signs are noted above. Heart is regular with no murmur or gallop. Lungs are clear. Abdomen is soft with no mass or tenderness. She is awake and alert Discharge Results Labs on day of discharge: Labs from last 24 hours 11/11/16 11/11/16 11/11/16 21:58 15:58 12:03 POC Glucose 306 H 226 H 171 H 11/11/16 08:01 POC Glucose 161 H DS: Provider Date of admission: 11/09/16 14:51 Primary care physician: . No PCP Attending physician on admission: Joe Bonilla MD Consults: 11/09/16 16:47 Consult to Pharmacy [CONS] Routine Reason for Pharmacy Consult: Adjust Meds Renal Funct 11/09/16 17:34 Consult to Physician [CONS] Routine Comment: Consulting Provider: Lan Baron Person Notified: DR. BARON Date Notified: 11/09/16 Time Notified: 17:51 11/09/16 21:36 Consult to Anesthesiology [CONS] Routine Consulting Provider: Reason for Anesthesiology: Pre-op Clearance 11/10/16 07:49 Consult to [facility], Educator [CONS] Routine Reason for Cement Finishing Supervisor: Evaluate and Recommend 11/10/16 14:08 Consult to [facility], Educator [CONS] Routine Reason for Cement Finishing Supervisor: Re-education Discharging clinician: Joe Bonilla MD Expected date of discharge: 11/12/16
[2016-11-12] MEDS: PANTOPRAZOLE 40 MG VIAL IV SCH (08:47)
[2016-11-12] MEDS: INSULIN REGULAR 100 UNIT/ML SUBCUT SCH (08:48)
[2016-11-12 09:51] VITALS: BP 131/74
--- NOTE | 2016-11-13 14:46 | Pathology Report from [facility] ---
ACCESSION # : [id number] PATIENT NAME : Annel Duarte ORDERING DR : Lan Matthews MD CLINICAL HX: N/V - Epigastric pain POST-OP DX: #1 Gastritis #2 Esophageal polyp SPECIMEN INFO: #1 AYAZ #2 Esophageal biopsy GROSS DESCRIPTION: The kelsie is received in formalin in two parts labeled ' ANNEL DUARTE". #1 "AYAZ" consists of a 0.5 x 0.3 cm aggregate of hart tissue, submitted in cassette #1.#2 "ESOPHAGEAL" consists of two hart tissue fragments measuring 0.2 x 0.2 cm collectively, submitted in cassette #2. DIAGNOSIS FOR ANNEL DUARTE: #1 GASTRIC BIOPSIES: Mild chronic superficial gastritis. H.pylori not seen on special stain.#2 ESOPHAGEAL BIOPSIES: Scant acellular debris present. SERVICE DATE: 11/10/2016 REPORT DATE: 11/13/2016 PATHOLOGIST: Troy Lopez M.D. [id number]
== END 2016-11-12 10:00 | disposition home or self-care (01) | DRG 74 ==
LOC: N.ED 11:24 → SUATTDRO 14:51 → N.EDINP 14:51 → N.TELES 16:42 → N.2E 11-10 17:34
PROVIDERS: ADMIT Internal Medicine Geriatric Medicine; ATTEND Internal Medicine Geriatric Medicine